=== PATIENT | female | born 1950 | race Two or more races ===

== ENCOUNTER 2022-03-12 12:15 | Inpatient (IN) | payer OTHER ==
[~2022-03-12] VITALS: Ht 162.6 cm; Wt 0.5 kg
[2022-03-18] MEDS ORDERED: ZYRTEC10 M3 PO (12:40)
[2022-03-18] MEDS ORDERED: LIPITOR20 MG PO (12:40)
[2022-03-18] MEDS ORDERED: PRILOSEC OTC20 MG PO (12:41)
[2022-03-20] MEDS ORDERED: ATORVASTATIN CA10 MG (08:30)
[2022-03-20] MEDS ORDERED: OMEPRAZOLE20 MG (08:30)
== END 2022-03-20 15:37 | disposition home or self-care (01) | DRG 743 ==
LOC: O/R 03-19 09:25 → OB/GYN 03-19 17:52 → SURH 03-20 12:15 → OB/GYN 03-20 12:15
PROVIDERS: ADMIT Specialist; ATTEND Specialist
PROC: 0UT24ZZ Resection of Bilateral Ovaries, Percutaneous Endoscopic Approach (ICD-10-PCS; 2022-03-19)
PROC: 0TN64ZZ Release Right Ureter, Percutaneous Endoscopic Approach (ICD-10-PCS; 2022-03-19)
PROC: 0UB04ZZ Excision of Right Ovary, Percutaneous Endoscopic Approach (ICD-10-PCS; 2022-03-19)
PROC: 0UT74ZZ Resection of Bilateral Fallopian Tubes, Percutaneous Endoscopic Approach (ICD-10-PCS; principal; 2022-03-19 17:30)
DX: D27.0 Benign neoplasm of right ovary (principal); Z20.822 Contact with and (suspected) exposure to COVID-19

== ENCOUNTER 2023-06-24 10:15 | Emergency (ER) | payer OTHER ==
[~2023-06-24] VITALS: Ht 162.6 cm; Wt 58.5 kg
[~2023-06-24 10:15] MED LIST: ATORVASTATIN CA10 MG; LIPITOR20 MG PO; OMEPRAZOLE20 MG; PRILOSEC OTC20 MG PO; ZYRTEC10 M3 PO
== END 2023-06-24 14:27 | disposition home or self-care (01) ==
LOC: ER 10:15
DX: K57.32 Diverticulitis of large intestine without perforation or abscess without bleeding (principal); K57.30 Diverticulosis of large intestine without perforation or abscess without bleeding; Z88.6 Allergy status to analgesic agent; H81.10 Benign paroxysmal vertigo, unspecified ear

== ENCOUNTER 2024-02-01 08:30 | Outpatient (CLI) | payer OTHER | END 2024-02-01 08:33 | disposition home or self-care (01) | LOC: SONOGRAMA 08:30 | PROVIDERS: ATTEND Pathology Anatomic Pathology & Clinical Pathology | DX: D34 Benign neoplasm of thyroid gland (principal); E07.89 Other specified disorders of thyroid; E04.2 Nontoxic multinodular goiter ==

== ENCOUNTER 2024-07-16 09:22 | Emergency (ER) | payer OTHER ==
[~2024-07-16] VITALS: Ht 162.6 cm; Wt 59.0 kg
[2024-07-16] MEDS ORDERED: ONDANSETRON HCL 2 MG/ML VIAL ONE (10:29)
[2024-07-16] MEDS ORDERED: HYOSCYAMINE SULFATE 0.125 MG TAB.SUBL ONE (10:29)
[2024-07-16] MEDS ORDERED: FAMOTIDINE/PF 20 MG/2 ML VIAL ONE (10:29)
[2024-07-16] MEDS ORDERED: HYOSCYAMINE SULFATE 0.125 MG TAB.SUBL SL ONE (10:30)
[2024-07-16] MEDS ORDERED: ONDANSETRON HCL 2 MG/ML VIAL IV ONE (10:30)
[2024-07-16] MEDS ORDERED: FAMOTIDINE/PF 20 MG/2 ML VIAL IV PUSH ONE (10:30)
[2024-07-16 11:27] LABS: HEMATOCRIT 41.2 % (36.0-45.00); MEAN CORPUSCULAR HEMOGLOBIN 30.6 pg (27.00-32.0); PLATELET COUNT 243 K/uL (150-450); RED BLOOD COUNT 4.57 M/uL (4.00-6.00); RED CELL DISTRIBUTION WIDTH 13.8 % (11.5-14.5)
[2024-07-16 11:42] LABS: BILIRUBIN TOTAL 1.23 mg/dL (0.3-1.2); CALCIUM 9.8 mg/dL (8.5-10.1); CREATININE SERUM 0.6 mg/dL (0.55-1.02); GFR 97.2; GLOBULINA 3.5 G/DL (2.4-3.5); POTASSIUM 3.9 mEq/L (3.5-5.1); TOTAL PROTEIN 7.5 gm/dL (6.4-8.2)
[2024-07-16 12:55] LABS: URINE APPEARANCE Clear; URINE BILIRRUBIN Negative (NEGATIVE); URINE BLOOD Trace; URINE COLOR Yellow; URINE GLUCOSE Negative (NEGATIVE); URINE LEUKOCYTE Trace; URINE NITRATE Negative; URINE PROTEIN Trace (NEGATIVE)
[2024-07-16 12:58] LABS: URINE BACTERIA 331.3 uL (0.0-1933); URINE EPITHELIAL CELLS 33.6 uL (0.0-38.8); URINE RBC 20.3 uL (0.0-20.8); URINE WBC 15.6 uL (0.0-23.2)
[2024-07-16] MEDS ORDERED: PIPERACILLIN/TAZOBACTAM SODIUM 3.375 GM VIAL IV ONE ×2 (13:15→13:20)
[2024-07-16 13:26] LABS: URINE KETONE 80 (NEGATIVE)
== END 2024-07-16 15:55 | disposition home or self-care (01) ==
LOC: ER 09:24
PROVIDERS: General Practice
DX: K57.92 Diverticulitis of intestine, part unspecified, without perforation or abscess without bleeding (principal); R10.9 Unspecified abdominal pain; Z88.6 Allergy status to analgesic agent
CPT/HCPCS: 36415; 74176; 96365; 99284; J2405; J2543; J3490